=== PATIENT | female | born 1985 | race Caucasian/White ===

== ENCOUNTER 2016-08-03 14:48 | Inpatient (IN) | payer BC ==
[~2016-08-03] VITALS: Ht 170.2 cm; Wt 81.2 kg
[2016-08-03 16:42] LABS: ABS NEUTROPHIL COUNT 17.45; HEMATOCRIT 39.5 % (36.0-46.0); MCH 27.9 PG (29.0-34.0); MCHC 33.7 G/DL (30.0-36.0); MEAN PLAT.VOLUME 11.5 uM^3 (9.5-12.4); PLAT.SUFFICIENCY ADEQUATE; PLATELET COUNT 196 K/uL (156-360); RBC DIS.WIDTH-CV 14.7 % (11.8-14.6); RBC DIS.WIDTH-SD 44.3 % (39-53); RED BLOOD COUNT 4.76 M/uL (3.80-5.20); WHITE BLOOD COUNT 19.4 K/uL (4.1-10.2)
[2016-08-03 17:12] VITALS: BP 123/58
[2016-08-03 17:26] VITALS: BP 116/56
[2016-08-03] MEDS ORDERED: MOTRIN800 MG PO (17:33)
[2016-08-03 17:40] VITALS: BP 109/58
[2016-08-03 17:56] VITALS: BP 120/66
[2016-08-03 17:56] LABS: DELETE MACHINE DIFF? YES
[2016-08-04 07:23] VITALS: BP 117/67
[2016-08-04 14:56] VITALS: BP 116/74
[2016-08-04 23:11] VITALS: BP 140/66
[2016-08-05 07:28] VITALS: BP 105/62
[2016-08-05 14:32] VITALS: BP 112/61
== END 2016-08-05 18:24 | disposition home or self-care (01) | DRG 775 ==
LOC: LDRP-OP 14:48 → 2WEST 14:49 → LDRP-OP 08-05 11:06 → 2WEST 08-05 18:24 → LDRP-OP 08-23 10:07
PROVIDERS: Nurse Practitioner
DX: O48.0 Post-term pregnancy (principal); O77.0 Labor and delivery complicated by meconium in amniotic fluid; Z3A.41 41 weeks gestation of pregnancy; O70.0 First degree perineal laceration during delivery; Z37.0 Single live birth; O69.82X0 Labor and delivery complicated by other cord entanglement, without compression, not applicable or unspecified
CPT/HCPCS: 85025; J2590